=== PATIENT | male | born 1970 | race Caucasian/White ===

== ENCOUNTER → 2018-09-17 15:54 | Emergency (ER) | payer BC ==
[~2018-09-17 15:54] MED LIST: Amoxicillin/Clavulanate TAB* 875 MG PO ONE; Ketorolac INJ* 60 MG/2 ML VIAL IM ONE
--- OUTSIDE RECORDS SUMMARY | 2018-09-17 16:05 | XMS REPORT | Continuity of Care Document ---
:1970 External Reference #:[id number] Author Name Ritesh Varela MD Address [address] [place] [address] Care Team Providers Name Role Phone Jorge A Cabrera D.O. 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 Primary Care Physician Unavailable Payers Date Identification Numbers Payment Provider Subscriber Policy Number: [id number] [facility] Tom Stevenson PayID: [id number] 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 Tobacco Use Start: Unknown Never Smoked Cigarettes Tobacco Use Start: Unknown Never Smoked Cigars Tobacco Use Start: Unknown Never Smoked A Pipe Smokeless Tobacco Current Tobacco Chewer ETOH Use Currently rarely consumes alcohol Allergies, Adverse Reactions, Alerts Description No Known Drug Allergies Medications Medication Date Status Form Strength Qnty SIG Indications Ordering Provider Sertraline HCL 0000/00 Active Tablets 50mg 1 tab Unknown 00 daily Hydroxyzine HCL 0000 Active Tablets 10mg 1 by mouth Unknown 00 every night at bedtime Immunizations Description No Information Available Vital Signs Date Vital Result Comment 08/27/2018 3:13pm Weight 180.00 lb Weight 81.648 kg Height 70.5 inches 5'10.50" Height in cm's 179.1 cm BMI (Body Mass Index) 25.5 kg/m2 Results Description No Information Available Procedures Description No Information Available Encounters Type Date Location Provider Dx Diagnosis Office Visit 08/27/2018 Bubba Savage Ashu D10.39 Benign neoplasm of 4:00p 06/16/07 other parts of mouth Plan of Treatment 08/27/2018 - Ritesh Varela MDD10.39 Benign neoplasm of other parts of mouthComments: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 I also discussed at length and spent a significant amount time discussing cessation of chewing tobacco.
--- OUTSIDE RECORDS SUMMARY | 2018-09-17 16:05 | XMS REPORT | Continuity of Care Document ---
:1970 External Reference #:[id number] Author Name Marck Montero M.D. Address [address] [place] [address] Care Team Providers Name Role Phone Jorge A Cabrera D.O. 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 [address] [place] [address] Advance Directives Description No Information Available Problems Description No Information Family History Description No Information Available Social History Type Date Description Comments Sex Unknown Allergies, Adverse Reactions, Alerts Description No Information Medications Description No Information Immunizations Description No Information Available Vital Signs Description No Information Available Results Description No Information Available Procedures Description No Information Available Encounters Description No Information Available Plan of Treatment Future Appointment(s):08/19/2018 3:15 pm - Marck Montero M.D. at [place] ,After 06/16/07
--- NOTE | 2018-09-17 16:14 | ED ---
Throat Pain/Nasal Congestion - HPI Summary HPI Summary: A 48 y/o male presents to [facility] with a chief complaint of dental pain. He describes his pain as sore. At triage he rated his pain as a 7/10 in severity. He reports that his appointment with his dentist is on 09/23/18, but his dentist cannot see him sooner. He denies any other pain. He denies any PMHx and FHx. He reports a SHx of back surgery. - History of Current Complaint Chief Complaint: EDDentalPain Time Seen by Provider: 09/17/18 16:07 Hx Obtained From: Patient Onset/Duration: Sudden Onset, Lasting Hours, Still Present Severity: Severe Associated Signs And Symptoms: Positive: Negative - any other pain besides dental pain Cough: None - Allergies/Home Medications Allergies/Adverse Reactions: Allergies Allergy/AdvReac Type Severity Reaction Status Date / Time No Known Allergies Allergy Verified 09/17/18 15:59 Home Medications: Home Medications Sertraline* [Zoloft*] 100 mg PO DAILY 09/17/18 [History Confirmed 09/17/18] PMH/Surg Hx/FS Hx/Imm Hx Endocrine/Hematology History: Denies: Hx Diabetes Cardiovascular History: Denies: Hx Hypercholesterolemia, Hx Hypertension - Surgical History Surgery Procedure, Year, and Place: back Infectious Disease History: No Infectious Disease History: Denies: Traveled Outside the [place] in Last 30 Days - Family History Known Family History: Negative: Cardiac Disease, Hypertension, Diabetes - Social History Alcohol Use: Occasionally Hx Substance Use: No Hx Tobacco Use: Yes Do You Chew or Dip Tobacco: Yes Review of Systems Negative: Fever Positive: Dental Pain All Other Systems Reviewed And Are Negative: Yes Physical Exam - Summary Physical Exam Summary: VITAL SIGNS: Reviewed. GENERAL: Patient is a well-developed and nourished MALE who is lying comfortable in the stretcher. Patient is not in any acute respiratory distress. HEAD AND FACE: No signs of trauma. No ecchymosis, hematomas or skull depressions. No sinus tenderness. EYES: PERRLA, EOMI x 2, No injected conjunctiva, no nystagmus. EARS: Hearing grossly intact. Ear canals and tympanic membranes are within normal limits. MOUTH: Multiple teeth missing, small swelling in lower gum where one of tooth is missing, small TTP, no swelling in jaw, no airway compromise, no trismus. NECK: Supple, trachea is midline, no adenopathy, no JVD, no carotid bruit, no c- spine tenderness, neck with full ROM. CHEST: Symmetric, no tenderness at palpation LUNGS: Clear to auscultation bilaterally. No wheezing or crackles. CVS: Regular rate and rhythm, S1 and S2 present, no murmurs or gallops appreciated. ABDOMEN: Soft, non-tender. No signs of distention. No rebound no guarding, and no masses palpated. Bowel sounds are normal. EXTREMITIES: FROM in all major joints, no edema, no cyanosis or clubbing. NEURO: Alert and oriented x 3. No acute neurological deficits. Speech is normal and follows commands. SKIN: Dry and warm Triage Information Reviewed: Yes Vital Signs On Initial Exam: Initial Vitals Temp Pulse Resp BP Pulse Ox 97.9 F 89 16 133/100 98 09/17/18 15:57 09/17/18 15:57 09/17/18 15:57 09/17/18 15:57 09/17/18 15:57 Vital Signs Reviewed: Yes Diagnostics - Vital Signs Vital Signs Temp Pulse Resp BP Pulse Ox 09/17/18 15:57 97.9 F 89 16 133/100 98 - Laboratory Lab Statement: Any lab studies that have been ordered have been reviewed, and results considered in the medical decision making process. EENT Course/Dx - Course Assessment/Plan: Patient is a 48-year-old male with dental pain. In the ED course the patient was given Toradol and Augmentin. In the physical exam the patient has multiple teeth missing. Fractured tooth. And there is no signs of an abscess. The patient has no trismus and there is no airway compromise. Patient will be discharged home with follow-up with the dentist and a prescription for Augmentin, ibuprofen, and [place]. Patient is hemodynamically stable alert and oriented 3. - Diagnoses Provider Diagnoses: Pain, dental Discharge - Sign-Out/Discharge Documenting (check all that apply): Patient Departure - DC Patient Received Moderate/Deep Sedation with Procedure: No - Discharge Plan Condition: Stable Disposition: HOME Prescriptions: Amoxicillin/Clavulanate TAB* [Augmentin TAB 875*] 875 mg PO BID #20 tab HYDROcodone/ACETAMIN 5-325 MG* [[place] 5-325 TAB*] 1 tab PO Q6H PRN #10 tab MDD 4 PRN Reason: Pain Ibuprofen TAB* [Motrin TAB* 800 MG] 800 mg PO Q8H PRN #25 tab PRN Reason: Pain Referrals: Jorge A Cabrera DO [Primary Care Provider] - 3 Days Additional Instructions: FOLLOW UP WITH YOUR PRIMARY CARE PROVIDER. RETURN TO THE ED FOR ANY WORSENING OR NEW SYMPTOMS. - Billing Disposition and Condition Condition: STABLE Disposition: Home - Attestation Statements Document Initiated by Scribe: Yes Documenting Scribe: David Cohn Provider For Whom Luisaibgal is Documenting (Include Credential): Chuy Moncada MD Scribe Attestation: David Corona, scribed for Chuy Moncada MD on 09/17/18 at 1828. Scribe Documentation Reviewed: Yes Provider Attestation: The documentation as recorded by the David brooke accurately reflects the service I personally performed and the decisions made by me, Chuy Moncada MD Status of Scribe Document: Viewed
[2018-09-17 16:55] VITALS: BP 146/96
== END | disposition home or self-care (01) ==
LOC: ED 15:54
DX: K08.89 Other specified disorders of teeth and supporting structures (principal)
CPT/HCPCS: 96374; 99282; A9270-GY; J1885